=== PATIENT | male | born 1960 | race Caucasian/White ===

== ENCOUNTER 2024-06-05 01:58 | Emergency (ER) | payer SELFPAY ==
[2024-06-05 02:45] VITALS: BP 102/59; PULSE 54; RESP 15; TEMP 36.2; O2SAT 100
--- NOTE | 2024-06-05 02:49 | ECG_ITS ---
Test Date: 2024-06-05 03:05:31 Measurements Intervals [place] Rate: 50 P: 61 MS: 193 QRS: 76 QRSD: 82 T: 46 QT: 422 QTc: 386 Interpretive Statements SINUS BRADYCARDIA No previous ECG available for comparison Electronically Signed On 06-10-2024 10:12:43 [employer] by Garrison Delgado M.D.
[2024-06-05 03:25] VITALS: PULSE 54
[2024-06-05 03:32] VITALS: BP 119/71; PULSE 54; RESP 15; TEMP 36.5; O2SAT 100
[2024-06-05 03:49] LABS: Influenza A QL RT-PCR Negative (Negative); Influenza B QL RT-PCR Negative (Negative); RSV RNA, RT-PCR Negative (Negative); SARS-CoV-2 RNA PCR Negative (Negative)
[2024-06-05 06:19] VITALS: BP 135/67; PULSE 89; RESP 18; O2SAT 96
--- NOTE | 2024-06-05 07:05 | ED_ITS ---
HPI - Weakness General Chief complaint: Weakness Stated complaint: weakness Time Seen by Provider: 06/05/24 07:03 History of Present Illness HPI Narrative: PATIENT LEFT WITHOUT BEING SEEN BY A PROVIDER. ROOMED IN THE ED but subsequently walked out. Related Data Allergies Allergy/AdvReac Type Severity Reaction Status Date / Time No Known Allergies Allergy Verified 06/05/24 02:01 Course Vital Signs Vital signs: Vital Signs Temperature 97.2 F L 06/05/24 02:45 Pulse Rate 54 L 06/05/24 02:45 Respiratory Rate 15 06/05/24 02:45 Blood Pressure 102/59 L 06/05/24 02:45 Pulse Oximetry 100 06/05/24 02:45 Oxygen Delivery Room Air 06/05/24 02:45 Temperature 97.7 F 06/05/24 03:32 Pulse Rate 89 06/05/24 06:19 Respiratory Rate 18 06/05/24 06:19 Blood Pressure 135/67 06/05/24 06:19 Pulse Oximetry 96 06/05/24 06:19 Oxygen Delivery Room Air 06/05/24 02:45 MDM - Weakness MDM Narrative Medical decision making narrative: In the emergency department he is afebrile with vital signs notable for mild bradycardia. Blood pressure slightly low initially though heart rate normalizes as a blood pressure on reassessment. Lab Data Labs: Lab Results 06/05/24 Range/Units 03:00 Influenza A (RT-PCR) Negative (Negative) Influenza B (RT-PCR) Negative (Negative) RSV (RT-PCR) Negative (Negative) SARS-CoV-2 RNA (RT-PCR) Negative (Negative) ECG Data EKG #1: Attestation: I personally reviewed and interpreted this ECG as follows: ECG completion date: 06/05/24 ECG completion time: 03:05 Interpretation: Sinus bradycardia at a rate of 50 beats per minute. MD interval 193. QRS 82. QT/QTC 422/395. Good R-wave progression across the precordial leads. No T-wave inversions. Normal axis. Discharge Plan Discharge Patient Disposition: Left Without Being Seen Patient Language: Arabic Follow-up/Referrals: PHYSICIAN NOT ON STAFF,NONSTAFF [Primary Care Provider] -
--- NOTE | 2024-06-05 07:05 | PC.NURSE ---
RN went to look for pt to put him back on the lunchroom monitor after going to restroom and noticed and pt were no longer in the room. This RN checked with key filer and asked if they saw pt walk out and she states she saw them walk out and states they were not coming back.
== END 2024-06-05 07:05 | disposition left against medical advice (07) ==
LOC: ANHED 07:19
PROVIDERS: Emergency Medicine; Emergency Provider Student in an Organized Health Care Education/Training Program
DX: R53.1 Weakness (principal); Z20.822 Contact with and (suspected) exposure to COVID-19
CPT/HCPCS: 87637; 93005; 99199